=== PATIENT | male | born 1965 | race Caucasian/White ===

== ENCOUNTER → 2019-04-15 10:52 | Outpatient (CLI) | payer BC, SELFPAY ==
[2019-04-15 11:48] LABS: Add Manual Diff / Slide Review NO; Basophils Absolute Auto 100 /uL (0-100); Basophils Percent Auto 0.8 % (0-2); Eosinophils Absolute Auto 200 /uL (0-450); Eosinophils Percent Auto 2.3 % (2-4); Hematocrit 48.4 % (41-53); Hemoglobin 16.6 g/dL (13.5-17.5); Lymphocytes Absolute Auto 1600 /uL (1100-4500); Lymphocytes Percent Auto 17.7 % (25-40); Mean Corpuscular HGB Conc 34.3 % (30-36); Mean Corpuscular Volume 87.5 fL (80-100); Monocytes Absolute Auto 800 /uL (0-900); Neutrophils Absolute Auto 6200 /uL (1500-7000); Neutrophils Percent Auto 70.2 % (50-75); Platelet Count 223 X10^3/uL (150-400); Red Blood Cell Count 5.53 X10^6/uL (4.5-5.9); White Blood Cell Count 8.9 X10^3/uL (4.5-11.0)
[2019-04-15 11:58] LABS: Alanine Aminotransferase 14 IU/L (21-72); Albumin 4.7 g/dL (3.5-5.0); Albumin Globulin Ratio 1.4 (1.0-2.8); Alkaline Phosphatase 107 U/L (38-126); Aspartate Aminotransferase 26 IU/L (17-59); Bilirubin Total 0.7 mg/dL (0.2-1.3); Bilirubin Unconjugated 0.5 mg/dL (0.0-1.1); Blood Urea Nitrogen 23 mg/dL (9-20); Calcium 9.6 mg/dL (8.4-10.2); Carbon Dioxide 28 mmol/L (22-32); Chloride 100 mmol/L (98-107); Estimated Glomerular Filt Rate > 60.0 mL/min (>60); Globulin 3.3 g/dL (1.7-4.1); Glucose 121 mg/dL (70-100); HEMOLYSIS < 15 (0-50); Potassium 4.4 mmol/L (3.4-5.1); Sodium 137 mmol/L (137-145)
== END ==
PROVIDERS: Family Provider Family Medicine; PCP Family Medicine; Visit Provider Orthopaedic Surgery Orthopaedic Surgery of the Spine
DX: Z01.812 Encounter for preprocedural laboratory examination (principal)
CPT/HCPCS: 36415; 80048; 80076; 85025; 93005

== ENCOUNTER 2019-06-03 12:14 | Inpatient (IN) | payer OTHER, SELFPAY ==
[2019-05-24 10:00] VITALS: BMI 32.2
[2019-06-03] VITALS (16 sets, daily range): BP systolic 104–159; BP diastolic 65–99; PULSE 65–92; RESP 9–18; TEMP 36.2–37.2; O2SAT 78–97; BMI 32.2
--- NOTE | 2019-06-03 | DI.RAD.S_ITS ---
PROCEDURE: XR LUMBAR SPINE 2-3V INDICATIONS: L5-S1 TLIF TECHNIQUE: 3 intraoperative views of the lumbar spine were acquired. COMPARISON: [facility], , -SPINE 2-3 VIEWS, 07/17/2017, 15:39. FINDINGS: Intraoperative spot films demonstrate lumbosacral fusion. IMPRESSION: Intraoperative imaging obtained during lumbosacral fusion. Dictated by: Gary Richards M.D. on 06/03/2019 at 16:32 Approved by: Gary Richards M.D. on 06/03/2019 at 16:32
[2019-06-03] MEDS: LACTATED RINGERS 1,000 ML 42 ML IV ×2 (13:21→17:34)
[2019-06-03] MEDS: ACETAMINOPHEN 325 MG TABLET 975 MG PO (13:27)
--- NOTE | 2019-06-03 13:33 | PM.PREOP ---
Pre-operative Note Interval Note History & Physical reviewed/Exam performed by Physician: Yes Changes to H&P: No
[2019-06-03] MEDS: CEFAZOLIN 2 GM/100 ML FROZ.PIGGY IV ×2 (14:15→22:06)
--- NOTE | 2019-06-03 14:47 | SUR.OPER ---
Prone on spine table, head in foam head support, padded chest and pelvic supports, gel pad at knees, lower legs supported by pillows; nipples, genitalia and toes free of pressure, arms secured on foam padded arm boards at <90 degrees abduction. Tape over blanket at thigh secured to table.
[2019-06-03] MEDS: BUPIVACAINE LIPOSOME 266 MG/20 ML VIAL INJ (14:51)
[2019-06-03] MEDS: BUPIVACAINE 0.25% W/ EPI (PF) 10 ML VIAL 20 ML INJ (14:52)
--- NOTE | 2019-06-03 16:48 | PM.OP.1 ---
Operative Date/Time/Diagnoses Date of procedure: 06/03/19 Time of procedure: 13:48 Pre-op diagnosis: 1. L5-S1 spondylolisthesis 2. L5-S1 spondylosis with radiculopathy 3. L5-S1 spinal stenosis. Post-op diagnosis: same Procedure & Clinicians Procedure: 1. L5-S1 Postero-lateral and posterior interbody fusion 2. L5-S1 interbody cage placement. 3. L5-S1 decompressive laminectomy with bilateral facetecomies 4. L5-S1 Posterior non-segmental instrumentation 5. [place] of bone marrow from iliac crest 6. Utilization of microsurgical technique and operating microscope Same procedure as scheduled: Yes Indications: Patient has been having chronic back pain and worsening lumbar radiculopathy. Patient failed multiple conservative management with worsening pain weakness and numbness in her lower extremity. Patient has been having difficulty performing activity of daily living. After discussing risks benefits of treatment options, patient elected proceed with surgery. Surgeon: Brissa Arevalo Music Publisher: Leatha Giles'Brien Click Yes if Unassisted: No Anesthesia Type: General Operative Notes Closure Type: primary Specimen(s): none sent Prosthetic devices, grafts, tissues, transplants, or devices: Globus revolve screws, Rise cage Estimated Blood Loss (mL): 50 Blood products transfused: none Procedure in detail: Patient was seen in the preoperative area. Risks and benefits of the surgery was discussed with the patient. Informed consent was obtained from the patient and placed in the chart. Surgical site was marked. Patient was taken to the operative room. General anesthesia was administered. Prophylactic antibiotic was given to the patient less than 30 min before the incision was made. Patient was placed into a prone position on the Dylon table. Patient's back was then prepped and draped in the sterile fashion. Time-out was performed at this time. Using AP and lateral C-arm imaging the interval between L5-S1 was identified and marked on patient's back. A 2 inch incision 2 in from midline was made on the left side first. The fascia was incised in line with skin incision. Globus MARS retractors was placed inside the incision and docked onto the L5 lamina. Using microsurgical technique and operating microscope, a L5 laminectomy and L5-S1 facetectomy was performed using a Kerrison rongeur. Patient was found have severe central and neural foramen stenosis at L5-S1 level. During the process of the laminectomy, it was identified L5-S1 level was grossly unstable due to the bilateral pars defect. After decompression was completed the L5-S1 central neural foramen was fully decompressed. After the compression the L5-S1 level was further destabilized and required fusion at the same time. The disc space at L5-S1 was identified. And a total diskectomy was performed at L5-S1 level. The endplates were decorticated using a rasp and shaver. The total diskectomy and decortication was performed at L5-S1 level in order to to accomplish a L5-S1 fusion. The local bone from the laminectomy and facetectomy was saved for local bone grafting. After the total diskectomy and decortication was completed, Bio4 bone graft material was combined with local bone that was harvested earlier. At this time, a separate skin is incision was made over the iliac crest. A Jamshidi needle was inserted into the iliac crest through a separate skin incision. 5 cc of bone marrow aspiration was obtained through the separate skin incision using a Jamshidi needle from the iliac crest. The bone marrow aspiration was combined with local bone and the Bio4 bone grafting material. The bone grafting material was placed into the L5-S1 interbody space along with a expandable cage. The cage was expanded to its maximum height using the torque limiting screwdriver. At this time a mirror image incision was made on the right side. The fascia was incised in line with the skin incision. Globus MARS retractor was inserted and docked onto the L5-S1 posterolateral gutter. Using the power drill, posterior-lateral decortication was performed at L5-S1 level until bleeding cortical bone was identified. The remaining bone grafting material was placed into the L5-S1 posterior lateral gutter he order to accomplish posterolateral fusion at the L5-S1 level. Using the double C-arm technique, pedicle screws were placed into the L5, S1 pedicles bilaterally. This was done by placing the Jamshidi needle into the pedicles, then placing the guidewires over the Jamshidi needle, and finally placing the cannulated screws over the guidewires bilaterally. After the pedicle screws were placed, 2 titanium rods was locked into the heads of the pedicle screws using locking caps and torque limiting screwdriver. After all the hardware was placed, and confirmed with AP and lateral C-arm imaging, the wound was then irrigated with sterile normal saline and packed with Ray-Zakiya gauze for 3 min to accomplish hemostasis. After the gauze was removed the deep fascia was closed with #1 Vicryl suture. The subcutaneous layer was closed with 2-0 Vicryl. The skin was closed with skin ayden. Patient tolerated the procedure well. There were no complications. Complications: none Post-operative Condition: stable Disposition: PACU Plan for aftercare: Admit to inpatient hospital
[2019-06-03] MEDS: HYDROMORPHONE 2 MG INJ IV ×2 (17:19→17:24)
--- NOTE | 2019-06-03 18:26 | PC.NURSE ---
Addendum entered by Sabrina Farrar R.N. 06/03/19 23:38: Vistaril and Vicodin administered to manage c/o back pain 09/30. Able to assist with turning in bed for skin assessment. Log rolling reinforced. BL foot pumps in place. Informed need to void within 8 hours post surgery. Taking oral fluids well. Original Note: Pt arrives to room 211 from PACU awake and conversant. Rates surgical pain to back 1-2/10. BL foot pumps in place. Admits to full sensation to BL LE's. Denies nausea. Dressing to back is dry and intact.
[2019-06-03] MEDS: SODIUM CHLORIDE 0.9% 1,000 ML 100 ML IV (18:44)
[2019-06-03] MEDS: HYDROCODONE/ACET 5/325 TABLET 2 TAB PO (18:49)
[2019-06-03] MEDS: SENNOSIDES 8.6 MG TABLET 17.2 MG PO (20:27)
[2019-06-03] MEDS: hydrOXYzine pamoate 25 MG CAPSULE PO (20:27)
[2019-06-03] MEDS: DOCUSATE 100 MG CAPSULE PO (20:28)
[2019-06-04] MEDS: HYDROCODONE/ACET 5/325 TABLET 2 TAB PO ×3 (01:06→08:52)
[2019-06-04] MEDS: SODIUM CHLORIDE 0.9% 1,000 ML 100 ML IV (05:02)
[2019-06-04 05:29] VITALS: BP 131/65; PULSE 81; RESP 16; TEMP 36.2; O2SAT 95
[2019-06-04] MEDS: CEFAZOLIN 2 GM/100 ML FROZ.PIGGY IV (05:51)
[2019-06-04 08:00] VITALS: BP 114/77; PULSE 73; RESP 18; TEMP 36.4; O2SAT 96
--- NOTE | 2019-06-04 08:46 | CM.DANOTE ---
Addendum entered by Britta Stone LPN 06/04/19 12:43: Went to room to check in with pt after noting d/c order and OT note, now in place. Noted pt had been able to work with therapies, been cleared for the home setting and had left for home with his at about 1130. Original Note: Discharge Planning/Care Management DCP: assessment: case received, EMR reviewed. Documentation reveals that pt is a 53 year old male who admitted yesterday for a planned spinal surgery/lumbosacral region. Surgeon: Dr. Arevalo PCP: [facility] Payer: Sha Rees Admission status: in review: per UR RN Kurtis. PT and OT are ordered but have not yet seen pt. Pt does identifiy his post hospital d/c plan as home setting with 's supportive assist: see phone asssessment with pre-op RN CAB below. P: discuss in Team Rounds this morning. Follow as POC unfolds to assist with d/c issues and options. CM Discharge Assessment Start: 06/04/19 08:44 Freq: Status: Active Protocol: Document 06/04/19 08:44 ITV (Rec: 06/04/19 08:45 ITV [id number]) Discharge Planning Assessment Advance Directives? No History Provided By Medical Record Prior Living Arrangements Mobile home Household Members spouse Review Status In Process Pre-Anesthesia Assessment Start: 05/24/19 10:00 Freq: Status: Complete Protocol: Document 05/24/19 10:00 CAB (Rec: 05/24/19 10:24 CAB [id number]) Pre-Anesthesia Assessment Patient Information Reviewed Via Phone Assessment Assessment Completed With Patient Diagnostic Results BMP/CMP,CBC,EKG Comment Labs/EKG @ [facility] 04/15/19 Primary Care Provider [facility] Seen Specialist in Last 12 Months Yes Specialist Seen Orthopedist Primary Language [place] Citizen Clinical Analyst Required No Height 172.72 cm Weight 96.162 kg Body Mass Index (BMI) 32.2 Hearing Ability Normal Visual Impairment No Limitations Visual Assist None Dentition Type Teeth, Natural Present Barriers to Learning None Other Aids No Hx Anesthesia Reactions No Hx Family Anesthesia Reaction No Hx Malignant Hyperthermia No Hx Blood Transfusions No Anesthesia Review Requested No alcohol intake former Smoking Status Former smoker how long ago did patient quit smoking Quit 11/2014 Substance Use Type does not use Pain Present Pain Reported Musculoskeletal Symptoms Abnormal Gait,Back Pain, Difficulty Walking,Numbness, Radiating Pain into Limb History of Falling (Recent or History of Yes ) Patient is completely paralyzed or No completely immobile Mental Status Oriented to own ability Is patient on oxygen? No Does patient have STONE/SOB No Hx Sleep Apnea No Suspected Sleep Apnea Yes: STOP/BANG positive Currently Taking a Beta Brenda No Can You Climb a Flight of Stairs Without Yes SOB Hx Chest Pain No Hx SOB No Hx Syncope or Dizziness No Anti-Coagulant Therapy No Has a Public Health Aide No Cardiac Testing No Hx Pacemaker/ICD No Pacemaker Rep Required? No Cardiac Clearance Received Not Applicable Diet Type At Home Regular dysphagia No Urinary Catheter Present No Hx Urinary Self Catheterization No Diabetes No Hx Drug Resistant Organism Yes: MRSA neck, ear 2010 Presence of External or Internal Medical No Devices Have you traveled outside the [facility] in the last 30 days? Marital Status Lives With spouse Prior Living Arrangements Mobile home Support System Spouse Does the Patient Have Assistance After Yes Surgery Patient Discharge Plan Description Return Home Comment Pt advised overnight length of stay per surgeon Feels Safe in Current Environment Yes Been Physically Hurt or Threatened By a No Person in Current Environment Do you have thoughts of harming yourself None or others? Are you currently considering suicide? No Do you have a plan to hurt yourself or No Plan others? Do You Have Any Spiritual Beliefs That No May Affect Your HC Choices? Do You Have Any Cultural Practices That No May Affect Your HC Choices? Who Can We Speak to About Patient's Care Family, friends Identifying Code for Release of Patient Declines to issue Information Health Care Proxy/Next of Kin Yadira (Sister) Health Care Proxy Emergency Contact Name Madisyn () Emergency Contact Advance Directives? No Power of Exerciser No PAC Instructions Durable medical equipment, Medications to take/avoid, Nasal antibiotic,No ETOH/ petroleum product on skin DOS, NPO,Post-op transportation,Pre -surgical wash,Sturdy shoes/ comfortable clothes,Do not bring valuables and remove jewelry Stop Bang Assessment Do you snore loudly (louder than talking Yes or loud enough to be heard through closed doors) Do you often feel tired, fatigued or Yes sleepy during the daytime Has anyone ever observed you stop Yes breathing while sleeping? Do you have, or are you being treated No for, high blood pressure Is your BMI more than 35 kg/m2 No Age over 50 Yes Estimated neck circumference greater Yes than 40cm or 16in Gender male Yes Result Positive
[2019-06-04] MEDS: DOCUSATE 100 MG CAPSULE PO (08:51)
[2019-06-04 08:59] LABS: Hematocrit 38.4 % (41-53); Hemoglobin 13.4 g/dL (13.5-17.5); Mean Corpuscular HGB Conc 34.8 % (30-36); Mean Corpuscular Hemoglobin 30.4 PG (26-34); Mean Corpuscular Volume 87.3 fL (80-100); Platelet Count 205 X10^3/uL (150-400); Red Cell Distribution Width 13.7 % (11.6-14.8); White Blood Cell Count 16.3 X10^3/uL (4.5-11.0)
--- NOTE | 2019-06-04 10:04 | PC.NURSE ---
New Coversite drsg applied to lower back; incisions X2 well-approximated with ayden; erik-skin pink and intact
--- NOTE | 2019-06-04 10:53 | OT.IP.EVAL ---
Current Diagnoses Spondylolysis, lumbar region (06/03/19) Spondylolisthesis, lumbosacral region (06/03/19) Other spondylosis with radiculopathy, lumbosacral region (06/03/19) Surgery Performed Operation Date: 06/03/19 14:15 Actual Procedures p L5-S1 TLIF - Brissa Arevalo MD Past Medical History (Last Updated 05/24/19 @ 10:23 by Adrianna Martin RN) Back pain (Acute) Former smoker (Acute) Hepatitis C (Acute) History of thrombocytopenia (Acute) Neutropenia (Acute) Radiculopathy (Acute) Surgical History (Last Updated 05/24/19 @ 10:23 by Adrianna Martin RN) Hx of microdiscectomy (Acute 07/17/17) Occupational Therapy Inpatient Evaluation/Re-Eval M1 PT/OT-IP Prior Functional Status Start: 06/04/19 11:43 Freq: NEEDED Status: Active Protocol: Document 06/04/19 11:43 CGR (Rec: 06/04/19 11:59 CGR [id number]) Medical Review Prior Functional Status Medical History Reviewed Yes Communication Effective verbal communication . Mobility and Gait Pt was IND with mobility prior to admit. Activities of Daily Living and IADL's Pt was IND in all ADLs prior to admit. 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 Social History Household Members spouse Living Arrangements Mobile home Number of Floors (Floors) One Floor Number of Stairs To Enter/Railing? 5 steps with B rails. 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 Diagnosis Onset Date 06/03/19 Post Operative Precautions Lumbar Precautions Log Roll,No Twisting,Limit Bending,Lifting Restriction of 10 lbs,Gait Belt above Incisional Area M3 OT- IP Subjective and Pain Start: 06/04/19 11:43 Freq: Status: Active Protocol: Document 06/04/19 11:43 CGR (Rec: 06/04/19 11:59 CGR [email or web address]) OT- Subjective Occupational Therapy Visit Type Type Initial Evaluation Visit Start Time 10:29 Visit Stop Time 10:53 Total Visit Minutes 24 Occupational Therapy Visit Comments Patient Comments I am ready to go home. OT Pain Assessment Pain When Pain Assessed At Rest Pain Present Pain Present Pain Reported Location lower back Intensity 3 Scale Used Numeric (1 - 10) Management Techniques Timing of Activity with Medications M4 OT- IP ADL's Start: 06/04/19 11:43 Freq: Status: Active Protocol: Document 06/04/19 11:43 CGR (Rec: 06/04/19 11:59 CGR [id number]) OT [id number] Comments OT Self-Feeding Comments Not meal time OT ADL-Grooming General Evaluation Grooming Ability Independent Areas Needing Assistance Retrieving/Set-up of Grooming Items Comments OT Grooming Comments standing at sink OT ADL-Oral Care General Eval Oral Care Ability Independent Areas of Assistance Brushing Teeth,Retrieving/Set- Up of Items Comments Oral Care Comments standing at sink OT ADL-Dressing General Eval Lower Body Dressing Ability Independent Areas Needing Assistance Underpants/Brief,Socks Comments OT Dressing Comments Pt was able to perform socks without AD and with maintaining back precautions. OT ADL-Toileting General Evaluation Toileting Ability Independent Areas Needing Assistance Perform Perineal Hygiene Devices Toileting Assistive Devices Raised Toilet Seat OT ADL-Bathing Comments OT Bathing Comments not performed M5 OT- IP IADL's Start: 06/04/19 11:43 Freq: Status: Active Protocol: Document 06/04/19 11:43 CGR (Rec: 06/04/19 11:59 CGR [email or web address]) OT-Instrumental Activities of Daily Living Deficits IADL Deficits Identified Deficits Home Safety Awareness Awareness of Need for Assistance at Home Good Awareness Ability to Problem Solve Emergency Able to Problem Solve Situations Medication Management Medication Management No Deficits Identified Money Management Money Management No Deficits Identified Meal Preparation Meal Preparation No Deficits Identified City Designer City Designer No Deficits Identified Driving Driving Caregiver Provides Assist M6 OT- IP Functional Cognition Start: 06/04/19 11:43 Freq: Status: Active Protocol: Document 06/04/19 11:43 CGR (Rec: 06/04/19 11:59 CGR [email or web address]) Cognitive Factors Limiting Selfcare Function Cognitive Ability Level of Alertness Alert Patient Orientation Name,Age,Birthday,Month,Date, Year,Day of Week,Place, Situation Attention Span Ability Capable of Focused Attention, Capable of Sustained Attention Ability to Follow Commands Able to Follow Multi-Step Commands Memory Description No Deficits Noted Safety Awareness No Deficits Noted Problem Solving Ability No deficits Noted Executive Function Ability No Deficits Noted Abstract Thinking Ability No Deficits Noted OT- Vision and Hearing OT- Hearing Assessment OT- Hearing Assessment WFL OT- Vision Assessment Visual Acuity WFL Visual Attentiveness WFL Occular Pursuits WFL Visual Convergence WFL Visual Jain WFL M7 OT- IP Mobility and Balance Start: 06/04/19 11:43 Freq: Status: Active Protocol: Document 06/04/19 11:43 CGR (Rec: 06/04/19 11:59 CGR [email or web address]) OT- Bed Mobility Assessment Rolling Type of Rolling Log Rolling Supine to Sit Supine to Sit Assist Independent Sit to Supine Sit to Supine Assist Independent Scooting Scooting to Edge of Bed Independent OT-Transfer Assessment Sit to and From Stand Sit to and from Stand Independent Transfers Transfer Ability Independent Technique Transfer Destination Bed,Chair,Toilet Transfer Technique Stand Step Pivot Devices Transfer Assistive Devices Front Wheeled Walker Comments Mobility Comments Mobility around the room with IND. Educated on use of walker for safety in home. OT- Gait Assessment Gait Gait Assistance Required: Independent Assistive Devices Assistive Device Front Wheeled Walker Comments Gait Ability Comments Mobility around the room with IND. OT- Balance Assessment Sitting Balance and Reactions Static Sitting Balance Ability Normal Dynamic Sitting Balance Ability Good M8 OT- IP Objective Assessments Start: 06/04/19 11:43 Freq: Status: Active Protocol: Document 06/04/19 11:43 CGR (Rec: 06/04/19 11:59 CGR [email or web address]) OT Gross Range of Motion Upper Extremity Range of Motion Assessment Within Functional Limits OT Strength Upper Extremity Strength Assessment Within Functional Limits OT- Coordination Assessment Upper Extremity Finger to Nose Test Within Functional Limits Finger Tapping Test Within Functional Limits OT-Muscle Tone Assessment Muscle Tone WNL Yes OT Sensation Assessment Edema Edema Absent M9 OT- IP Assessment and Plan Start: 06/04/19 11:43 Freq: Status: Active Protocol: Document 06/04/19 11:43 CGR (Rec: 06/04/19 11:59 CGR [email or web address]) OT Summary Assessment and Plan Potential Rehabilitation Potential Excellent Analytic Complexity at Evaluation Low Summary Progress Towards Goals Safe For Discharge,Goals Met Assessment Summary Pt presents as a low complexity evaluation. Mobility with the walker is IND after a few verbal cues for safety in the bathroom and at the sink. Pt was able to don socks and pants without AD while maintaining back precautions. No further needs at this time. Frequency of Treatment Frequency Of Treatment Discharge Discharge Recommendations OT Discharge Recommendations Home with Assistance Home Equipment Needs Pt has all needed DME.
--- NOTE | 2019-06-04 11:04 | PC.NURSE ---
Pt is dressed and ready for discharge home with Spouse. Has worked with PT and OT. Went over d/c instructions with Pt - discussed d/c meds, time of last dose, reviewed stroke education, s/s of infection, follow up and no driving while on narcotics. Dsg to back was also changed. Pt advised to not exceed 3000mg of Acetaminophen in 24 hours to prevent liver toxicity. Encouraged Pt to drink plenty of fluids to prevent constipation or dehydration. Pt denies further questions and was taken out to POV by PLACEMENT MANAGER to Spouse with all belongings.
--- NOTE | 2019-06-04 13:21 | PM.PN.1 ---
Exam Vital Signs (past 8 hours): - 06/04/19 05:29 06/04/19 08:00 Temperature 97.2 F L 97.5 F L Pulse Rate 81 73 Respiratory Rate 16 18 Blood Pressure 131/65 114/77 Pulse Oximetry 95 96 Oxygen Delivery Method Nasal Cannula Oxygen Flow Rate 0 Objective Labs Result Diagrams: 06/04/19 08:50 Labs: Laboratory Results - last 24 hr 06/04/19 08:50 WBC 16.3 H RBC 4.40 L Hgb 13.4 L Hct 38.4 L MCV 87.3 MCH 30.4 MCHC 34.8 RDW 13.7 Plt Count 205 Quality VTE Deep Vein Thrombosis/Pulmonary Embolism Present on Admission: No
--- NOTE | 2019-06-04 13:29 | PT.IIE ---
Current Diagnoses Spondylolysis, lumbar region (06/03/19) Spondylolisthesis, lumbosacral region (06/03/19) Other spondylosis with radiculopathy, lumbosacral region (06/03/19) Surgery Performed Operation Date: 06/03/19 14:15 Actual Procedures p L5-S1 TLIF - Brissa Arevalo MD Surgical History (Last Updated 05/24/19 @ 10:23 by Adrianna Martin RN) Hx of microdiscectomy (Acute 07/17/17) Medical History (Last Updated 05/24/19 @ 10:23 by Adrianna Martin RN) Back pain (Acute) Former smoker (Acute) Hepatitis C (Acute) History of thrombocytopenia (Acute) Neutropenia (Acute) Radiculopathy (Acute) Physical Therapy Inpatient Evaluation/Re-Eval M1 PT/OT-IP Prior Functional Status Start: 06/04/19 08:43 Freq: NEEDED Status: Discharge Protocol: Document 06/04/19 08:51 Karina (Rec: 06/04/19 12:25 J [id number]) Medical Review Prior Functional Status Medical History Reviewed Yes Communication Effective verbal communication . Mobility and Gait Pt was I with mobility prior to surgery. Activities of Daily Living and IADL's Pt was I with ADLs and IADLs prior to surgery. Prior Functional Level (Other details) Pt was able to drive prior to surgery. Pt notes that he was I with all mobility and ADLs except for when his back pain would flair up every couple of weeks, which would limit his tolerance d/t pain. Social History Household Members spouse Living Arrangements Mobile home Number of Floors (Floors) One Floor Number of Stairs To Enter/Railing? 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 Pt has 5 PADMINI with L railings. Pt's will be able to assist pt 13/01 and is physically active and able to assist pt as needed. 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 M1 PT/OT-IP Prior Functional Status Start: 06/04/19 11:43 Freq: NEEDED Status: Active Protocol: Document 06/04/19 11:43 CGR (Rec: 06/04/19 11:59 CGR [id number]) Medical Review Prior Functional Status Medical History Reviewed Yes Communication Effective verbal communication . Mobility and Gait Pt was IND with mobility prior to admit. Activities of Daily Living and IADL's Pt was IND in all ADLs prior to admit. 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 Social History Household Members spouse Living Arrangements Mobile home Number of Floors (Floors) One Floor Number of Stairs To Enter/Railing? 5 steps with B rails. 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 M2 PT-IP Current Condition Start: 06/04/19 08:43 Freq: NEEDED Status: Discharge Protocol: Document 06/04/19 08:51 MARGI (Rec: 06/04/19 12:25 JG [id number]) Physical Therapy Current Condition Current Condition Evaluation Date 06/04/19 Treatment Diagnosis L5-S1 TLIF, difficulty walking , limited activity tolerance Onset Date 06/03/19 Precautions Lumbar Precautions Log Roll,No Twisting,Limit Bending,Lifting Restriction of 10 lbs,Gait Belt above Incisional Area Weight Bearing Status Weight Bearing Status Full Weight Bearing M3 PT-IP Subjective Start: 06/04/19 08:43 Freq: NEEDED Status: Discharge Protocol: Document 06/04/19 08:51 JReji (Rec: 06/04/19 12:25 JG [id number]) Subjective Physical Therapy Visit Type Type Initial Evaluation Visit Start Time 08:51 Visit Stop Time 09:18 Total Visit Minutes 27 Notes IE led by KASIA Monson, supervised by PT Simeon Number of CIVIL ESTIMATOR Visits 0 Physical Therapy Visit Comments Patient Comments I am actually feeling really good. My back feels better than when it would go out before surgery. Patient Goals Return home Therapy Pain Assessment Pain When Pain Assessed At Rest Pain Present Pain Present Pain Reported Location lower back Intensity 5 Scale Used Numeric (1 - 10) Description Acute,With Movement Pain Management Techniques Distraction,Timing of Activity with Medications M4 PT-IP Mobility and Gait Start: 06/04/19 08:43 Freq: NEEDED Status: Discharge Protocol: Document 06/04/19 08:51 MARGI (Rec: 06/04/19 12:25 MARGI [id number]) PT-Bed Mobility Assessment Rolling Type of Rolling Log Rolling,Roll to Left Level of Assist Standby Assistance Supine to Sit Supine to Sit Standby Assistance Scooting Scooting to Edge of Bed Standby Assistance PT-Transfer Assessment Sit to and From Stand Sit to and from Stand Standby Assistance,Contact Guard Assistance,Use of Upper Extremities Equipment Transfer Assistive Device Gait Belt,Front Wheeled Walker Orthotic/Prosthetic Devices or Brace: No Transfers Transfer Destination Chair Transfer Technique ambulate with FWW Transfer Ability Level of Assist Standby Assistance,Contact Guard Assistance,Use of Upper Extremities Comments Mobility Comments Pt in bed upon assessment. Baseline BP 127/79, HR 69. Pt able to correctly articulate precautions. Educated pt to use log rolling when getting in and out of bed. Pt able to complete bed mobility safely with SBA. Required initial CGA for sit to stand. Pt able to ambulate in hallway to stairs and back to room. Pt voided and was able to complete pericare I. Pt SBA to sit in chair, left in chair with call light and needs within reach. Gait Assessment Gait Gait Assistance Required: Standby Assistance,Contact Guard Assist Distance (Feet) 150 Able to Maintain Weight Bearing Status Yes During Gait Assistive Devices Assistive Device Gait Belt,Front Wheeled Walker Orthotic/Prosthetic Devices or Brace: No Gait Deviations General Gait Pattern Decreased Stride Length,Flexed Trunk Factors Limiting Gait Function Factors Limiting Gait Function Decreased Activity Tolerance, Decreased Strength,Pain,Poor Balance Comments Gait Comments Pt ambulated ~150 ft to stairs and back to room with FWW. Initial CGA for stability but then required no more than SBA . Pt ambulate with short steps but gait 90% WNL. Stair Climbing Assessment Evaluation Level of Assist On Stairs Contact Guard Assistance Devices Stair Climbing Assistive Devices Left Railing,Right Railing Technique/Endurance Stair Climbing Direction Ascend and Descend Stair Climbing Technique Step to Step Number of Steps Climbed 3 Query Text: Stair Climbing Set # Repetitions (reps) 2 Comments Stair Climbing Comments Educated pt to use step to step pattern when climbing stairs. First round completed with B railing support and CGA . 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 Cont to require no more than CGA. Pt demonstrates good safety awareness and stability with UE support. PT-Balance Assessment Sitting Balance and Reactions Static Sitting Balance Ability Good Dynamic Sitting Balance Ability Good Standing Balance and Reactions Static Standing Balance Ability Good Dynamic Standing Balance Ability Good Device Used FWW M5 PT-IP Objective Assessments Start: 06/04/19 08:43 Freq: NEEDED Status: Discharge Protocol: Document 06/04/19 08:51 JG (Rec: 06/04/19 12:25 [id number]) Orientation Orientation/Cognition Level of Alertness Alert Orientation Name,Day of Week,Place, Situation Language Function Ability No Deficits Noted Safety Awareness Understands Safety Issues Memory Description No Deficits Noted Comments No noted cognitive or communication deficits. Pt is mildly impulsive during mobility and required min cuing for attention to task. Gross Range of Motion Upper Extremity ROM Assessment Within Functional Limits Lower Extremity ROM Assessment Within Functional Limits Strength Upper Extremity Strength Assessment Within Functional Limits Lower Extremity Strength Assessment Within Functional Limits Sensation Assessment Sensation Gross Sensation WNL Muscle Tone Muscle Tone WNL Yes M6 PT-IP Treatment Start: 06/04/19 08:43 Freq: NEEDED Status: Discharge Protocol: Document 06/04/19 08:51 JG (Rec: 06/04/19 12:25 [id number]) Physical Therapy Treatment Education Education Provided Precautions,Post-Op Packet, Safety M7 PT-IP Assessment and Plan Start: 06/04/19 08:43 Freq: NEEDED Status: Discharge Protocol: Document 06/04/19 08:51 JG (Rec: 06/04/19 12:25 [id number]) PT Summary Assessment and Plan Potential Rehabilitation Potential Excellent Status of Condition at Evaluation Stable Summary Impairments Pain,ROM,Strength,Balance,Bed Mobility,Transfers,Gait, Activity Tolerance Assessment Summary Pt is low complexity 53 yo male 1 day s/p L5-S1 TLIF. Pt required no more than CGA for mobility, ambulation, and stair climbing. Pt has good safety awareness of precautions but required min cuing during session for attention to task. Pt safe for d/c to home once medically cleared. Frequency of Treatment Frequency Of Treatment Discharge Recommendations To Nursing Amount of Assist Needed Standby Assistance Discharge Recommendations PT Discharge Recommendations Home with Assistance, Outpatient PT
== END 2019-06-04 11:06 | disposition home or self-care (01) | DRG 455 ==
PROVIDERS: Physician Assistant Surgical; Admitting Provider Orthopaedic Surgery Orthopaedic Surgery of the Spine; Family Provider Family Medicine; PCP Family Medicine; Visit Provider Orthopaedic Surgery Orthopaedic Surgery of the Spine
PROC: 0SG30AJ Fusion of Lumbosacral Joint with Interbody Fusion Device, Posterior Approach, Anterior Column, Open Approach (ICD-10-PCS; principal; 2019-06-03 14:15)
DX: M43.17 Spondylolisthesis, lumbosacral region (principal); M48.07 Spinal stenosis, lumbosacral region; M47.26 Other spondylosis with radiculopathy, lumbar region; M51.16 Intervertebral disc disorders with radiculopathy, lumbar region; M47.27 Other spondylosis with radiculopathy, lumbosacral region; Z87.891 Personal history of nicotine dependence
CPT/HCPCS: 36415; 72100; 76000; 85027; 97116; 97161; 97165; 97535; C1776; C9290; J0330; J0690; J1100; J1170; J2250; J2405; J2704; J3010

== ENCOUNTER → 2020-09-29 11:17 | Outpatient (CLI) | payer OTHER, SELFPAY ==
[2019-06-03 18:36] VITALS: BMI 32.2
[2020-09-29] MEDS: COVID-19 VACC, Ad26(JANSSEN)/PF 0.5 ML IM (11:33)
== END ==
PROVIDERS: Family Provider Family Medicine; PCP Family Medicine; Visit Provider Internal Medicine
DX: Z23 Encounter for immunization (principal)
CPT/HCPCS: 0031A; 91303